=== PATIENT | male | born 2000 | race Caucasian/White ===

== ENCOUNTER 2023-06-25 02:57 | Emergency (ER) | payer SELFPAY ==
[2023-06-25] VITALS (8 sets, daily range): BP systolic 121; BP diastolic 81; PULSE 84–87; RESP 16; TEMP 36.5–36.6; O2SAT 92–100
--- NOTE | 2023-06-25 03:15 | DI.CT_ITS ---
Exam(s) CT ABDOMEN PELVIS W EXAM: CT ABDOMEN PELVIS W CLINICAL HISTORY: bilateral groin pain TECHNIQUE: Imaging Protocol: Axial computed tomography images with coronal and sagittal reformatted images were created and reviewed CONTRAST MATERIAL: Intravenous: Omnipaque 350 Contrast volume:100 mL Oral: No COMPARISON: No exams were available for comparison FINDINGS: The examination is limited due to patient motion artifact. ABDOMEN: Lung Bases: Normal where visualized. Liver: Normal density. No measurable mass. Portal, Superior Mesenteric, and Splenic Veins: Unremarkable. Gallbladder and Biliary Tract: No radiodense calculus or dilation. Pancreas: Normal density, no abnormal calcifications or inflammatory process. Spleen: Normal. Adrenals: No masses seen. Kidneys: Normal size, contour and axis. No radiodense stones or obstructive uropathy. No masses seen. Abdominal Aorta: Abdominal portion non-dilated. Bowel: There is a moderate amount of stool in the colon. There is no evidence of bowel obstruction. No evidence of appendicitis. No bowel wall thickening. Peritoneal Cavity: No ascites, collection or mesenteric inflammatory response. No free air. Lymph Nodes: Within normal limits. Bones: Within normal limits for the patient's age. Soft Tissues: Unremarkable. PELVIS: Bladder: Symmetric distention, no gross wall thickening. Reproductive Organs: Unremarkable as visualized. Lymph Nodes: Within normal limits. Bones: Within normal limits for the patient's age. IMPRESSION: No acute abdominal or pelvic process. RADIATION DOSE DELIVERED: Total DLP DATA REPOSITORY: All CT scans at this facility are submitted to the National Radiology Data Registry (NRDR) Dose Index Registry (DIR) with the [employer] ([employer]). RADIATION OPTIMIZATION: All CT scans at this facility use at least one of these dose optimization te chniques: automated exposure control; mA and/or kV adjustment per patient size (includes targeted exa ms where dose is matched to clinical indication); or iterative reconstruction.
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
[2023-06-25] MEDS: ACETAMINOPHEN 1,000 MG/100 ML BTL 400 MG IVPB (03:40)
[2023-06-25] MEDS: Normal Saline 1,000 ML 1000 ML IV (03:42)
[2023-06-25] MEDS: Ketorolac 15 MG/ML VIAL IVP (03:44)
[2023-06-25] MEDS: Doxycycline Hyclate 100 MG CAP PO (03:45)
[2023-06-25 03:50] LABS: Bilirubin Negative (Negative); Blood Negative (Negative); Clarity Clear (Clear); Glucose Negative (Negative); Ketones Negative (Negative); Leukocyte Esterase Negative (Negative); Nitrite Negative (Negative); Specific Gravity 1.025 (1.005-1.025)
[2023-06-25] MEDS: Normal Saline - Diluent 50 ML VIAL IJ (03:54)
[2023-06-25] MEDS: Omnipaque 350 MG/ML 100 ML BTL IJ (03:55)
[2023-06-25] MEDS: Normal Saline Flush 10 ML SYR IVP (03:56)
[2023-06-25 03:57] LABS: Abs Immature Grans 0.05 10^3/uL (0.0-0.06); Absolute Basophil Count 0.05 10^3/uL (0.0-0.2); Absolute Eosinophil Count 0.13 10^3/uL (0.0-0.7); Absolute Lymphocyte Count 2.67 10^3/uL (1.2-3.4); Absolute Monocyte Count 0.68 10^3/uL (0.1-0.8); Absolute Neutrophil Count 3.85 10^3/uL (1.2-6.7); Basophils % 0.7; Eosinophils % 1.7; HCT 50.4 % (40.0-50.0); HGB 17.2 g/dL (13.5-17.5); Immature Grans % 0.7; Lymphocytes % 35.9; MCH 30.5 pg (27.0-33.0); MCHC 34.1 % (32.0-36.0); MCV 89 fL (80-95); MPV 9.2 fL (8.0-11.0); Monocytes % 9.2; Neutrophils % 51.8; Platelet Count 251 10^3/uL (130-400); RBC 5.64 10^6/uL (4.36-5.78); RDW 12.7 % (11.8-14.1); RDW-SD 42.1 fL; WBC 7.43 10^3/uL (4.4-10.8)
[2023-06-25 04:12] LABS: ALT 27 U/L (16-63); AST 21 U/L (15-37); Albumin 3.7 g/dL (3.4-5.0); Alkaline Phosphatase 103 U/L (46-116); Anion Gap 2.3 mmol/L (3-11); BUN 10 mg/dL (7-18); Bilirubin, Total 1.1 mg/dL (0.2-1.0); CO2 32.7 mmol/L (21.0-32.0); CREATININE 0.9 mg/dL (0.70-1.30); Calcium 8.5 mg/dL (8.5-10.1); Chloride 104 mmol/L (98-107); Estimated GFR 122.31 (mL/min/1.73m2); Glucose 61 mg/dL (74-106); Potassium 3.5 mmol/L (3.5-5.1); Sodium 139 mmol/L (136-145)
--- NOTE | 2023-06-25 04:34 | NUR.NOTE ---
Referral faxed to [facility]rology for 1-2 wk f/u of testicular pain, copy to Care Management to establish pcp to f/u in 1-2 weeks for STD exposure.Nursing Note:
--- NOTE | 2023-06-25 05:09 | DI.VRAD_ITS ---
PROCEDURE INFORMATION: Exam: CT Abdomen And Pelvis With Contrast Exam date and time: 06/25/2023 3:54 AM Age: 22 years old Clinical indication: Abdominal pain; Localized; Lower; Patient HX: Bilateral groin pain TECHNIQUE: Imaging protocol: Computed tomography of the abdomen and pelvis with contrast. Radiation optimization: All CT scans at this facility use at least one of these dose optimization techniques: automated exposure control; mA and/or kV adjustment per patient size (includes targeted exams where dose is matched to clinical indication); or iterative reconstruction. Contrast material: OMNIPAQUE 350; Contrast volume: 100 ml; Contrast route: INTRAVENOUS (IV); COMPARISON: No relevant prior studies available. FINDINGS: Liver: Normal. No mass. Gallbladder and bile ducts: Normal. No calcified stones. No ductal dilation. Pancreas: Unremarkable. Spleen: Normal. Adrenal glands: Normal. No mass. Kidneys and ureters: Normal. No hydronephrosis. Stomach and bowel: Unremarkable. No bowel wall thickening or intestinal obstruction. Appendix: Normal appendix. Intraperitoneal space: Unremarkable. No pneumoperitoneum. No abscess. Vasculature: Unremarkable. Lymph nodes: Unremarkable. Urinary bladder: Unremarkable as visualized. Reproductive: Unremarkable as visualized. Bones/joints: Unremarkable. No acute fracture. Soft tissues: Unremarkable. IMPRESSION: No acute findings. Dictated and Authenticated by: Karri Chambers MD. Ordering:FRANCISCA Colon MD
--- NOTE | 2023-06-25 06:23 | NUR.NOTE ---
Ultrasound requisition faxed to [facility], patient advised to call [facility] scheduling for ultrasound appt.bhavani.Nursing Note:
[2023-06-25 18:36] LABS: HIV-1/2 Ag & Ab Screen Negative (Negative)
[2023-06-26 13:32] LABS: Chlamydia Result Negative (Negative); GC Result Negative (Negative)
[2023-06-28 13:31] LABS: HIV 1 RNA Qualitative Undetected copies/mL (Undetected)
== END 2023-06-25 06:30 | disposition home or self-care (01) ==
LOC: ER 06:47
PROVIDERS: Emergency Provider Emergency Medicine Emergency Medical Services
DX: N50.812 Left testicular pain (principal); N50.811 Right testicular pain; Z20.2 Contact with and (suspected) exposure to infections with a predominantly sexual mode of transmission
CPT/HCPCS: 36415; 80053; 87389; 87491; 87536; 87591; 96365; 96375; 99285; 74177; 81003; 85025; 99284; J0131; J0696; J1885; J3490

== ENCOUNTER 2024-05-02 16:41 | Emergency (ER) | payer SELFPAY ==
[2024-05-02 16:42] VITALS: BP 138/92; PULSE 126; RESP 14; TEMP 37; O2SAT 98
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
== END 2024-05-02 17:20 | disposition left against medical advice (07) ==
LOC: ER 18:38
PROVIDERS: Emergency Provider Emergency Medicine
DX: R10.30 Lower abdominal pain, unspecified (principal); Z53.29 Procedure and treatment not carried out because of patient's decision for other reasons
CPT/HCPCS: 80053; 83690; 99283; 83735; 85025